=== PATIENT | female | born 1980 | race Asian ===

== ENCOUNTER 2017-12-01 02:58 | Inpatient (IN) | payer BC ==
[2017-12-01 04:27] LABS: ABS Basophils 0 10^3/ul (0-0.2); ABS Eosinophils 0 10^3/ul (0-0.6); ABS Lymphocytes 1.4 10^3/ul (1.0-4.8); ABS Monocytes 0.4 10^3/ul (0-0.8); ABS Neutrophils 5.3 10^3/ul (1.5-7.7); ABS Nucleated RBC 0 10^3/ul; Eosinophil % 0.3 % (0-6); Hematocrit 33 % (35-47); Lymphocyte % 19.9 % (25-47); Mean Corpuscular HGB Conc 34 g/dl (31-36); Mean Corpuscular Hemoglobin 31 pg (27-31); Mean Corpuscular Volume 92 fL (80-97); Mean Platelet Volume 8 um3 (7.4-10.4); Nucleated Red Blood Cells % 0; Platelet Count 194 10^3/ul (150-450); Red Blood Count 3.55 10^6/ul (4.0-5.4); Red Cell Distribution Width 13 % (10.5-15); White Blood Count 7.2 10^3/ul (3.5-10.8)
--- NOTE | 2017-12-01 04:33 | PTEDU ---
Patient Name: JACKIE MARTIN JORGE ALBERTOCARYGLADYSVIRIDIANA selected video: Never Ever Shake a Baby to view on 12/01/2017 at 4:33:00 AM from [facility] – [place] [id number]
[2017-12-01] MEDS ORDERED: Oxytocin in LR* 20 UNITS/1,000 ML BAG IVPB SCH (06:00)
[2017-12-01] MEDS ORDERED: fentaNYL* 50 MCG/ML 2 ML VIAL (100 MCG VIAL) ONE (11:38)
[2017-12-01] MEDS ORDERED: Misoprostol TAB* 200 MCG ONE (15:07)
[2017-12-01] MEDS ORDERED: Acetaminophen TAB* 325 MG PO PRN (15:20)
[2017-12-01] MEDS ORDERED: Witch Hazel PAD* JAR TOPICAL PRN (15:20)
[2017-12-01] MEDS ORDERED: Misoprostol TAB* 200 MCG PR ONE (15:20)
[2017-12-01] MEDS ORDERED: Dibucaine 1% 28.35 GM TUBE PR PRN (15:20)
[2017-12-01] MEDS ORDERED: Glycerin ADULT SUPP PR PRN (15:20)
[2017-12-01] MEDS ORDERED: Witch Hazel PAD* JAR ONE (15:23)
[2017-12-01] MEDS ORDERED: Dibucaine 1% 28.35 GM TUBE ONE (15:23)
[2017-12-01] MEDS ORDERED: Simethicone TAB* 80 MG TAB.CHEW PO SCH (17:30)
[2017-12-01] MEDS: Ibuprofen TAB* 600 MG PO PRN (17:51)
[2017-12-01] MEDS: Docusate CAP* 100 MG PO SCH (21:09)
[2017-12-02] MEDS: Ibuprofen TAB* 600 MG PO PRN ×4 (01:54→22:11)
[2017-12-02 06:42] LABS: ABS Basophils 0 10^3/ul (0-0.2); ABS Eosinophils 0 10^3/ul (0-0.6); ABS Lymphocytes 1.5 10^3/ul (1.0-4.8); ABS Monocytes 0.6 10^3/ul (0-0.8); ABS Neutrophils 8.7 10^3/ul (1.5-7.7); ABS Nucleated RBC 0 10^3/ul; Eosinophil % 0.1 % (0-6); Hematocrit 25 % (35-47); Hemoglobin 8.7 g/dl (12.0-16.0); Lymphocyte % 13.6 % (25-47); Mean Corpuscular HGB Conc 35 g/dl (31-36); Mean Corpuscular Hemoglobin 32 pg (27-31); Mean Corpuscular Volume 92 fL (80-97); Mean Platelet Volume 8 um3 (7.4-10.4); Nucleated Red Blood Cells % 0; Platelet Count 174 10^3/ul (150-450); Red Blood Count 2.74 10^6/ul (4.0-5.4); Red Cell Distribution Width 13 % (10.5-15); White Blood Count 10.8 10^3/ul (3.5-10.8)
[2017-12-02] MEDS: Docusate CAP* 100 MG PO SCH ×3 (08:52→22:11)
[2017-12-02] MEDS: Ferrous Gluconate TAB* 324 MG TAB PO SCH ×2 (08:52→22:11)
[2017-12-03] MEDS: Ibuprofen TAB* 600 MG PO PRN ×2 (06:19→11:56)
[2017-12-03 08:06] VITALS: BP 110/67
[2017-12-03] MEDS: Ferrous Gluconate TAB* 324 MG TAB PO SCH (08:56)
[2017-12-03] MEDS: Docusate CAP* 100 MG PO SCH (08:56)
== END 2017-12-03 12:43 | disposition home or self-care (01) | DRG 560 ==
LOC: MCHOBOUT 02:58 → MCHOB 03:54
PROVIDERS: ADMIT Obstetrics & Gynecology; ATTEND Obstetrics & Gynecology
PROC: 10E0XZZ Delivery of Products of Conception, External Approach (ICD-10-PCS; principal; 2017-12-03)
PROC: 4A1HX4Z Monitoring of Products of Conception, Cardiac Electrical Activity, External Approach (ICD-10-PCS; 2017-12-03)
PROC: 0W8NXZZ Division of Female Perineum, External Approach (ICD-10-PCS; 2017-12-03)
DX: O48.0 Post-term pregnancy (principal); O69.82X0 Labor and delivery complicated by other cord entanglement, without compression, not applicable or unspecified; Z3A.40 40 weeks gestation of pregnancy; Z37.0 Single live birth; O90.81 Anemia of the puerperium
CPT/HCPCS: 36415; 85025; 86850; 86900; 86901; A9270-GY; J3010